=== PATIENT | male | born 1970 | race African-American/Black ===

== ENCOUNTER 2023-09-04 09:32 | Emergency (ER) | payer OTHER, MEDICAID, SELFPAY ==
[2023-09-04] VITALS (9 sets, daily range): BP systolic 125–150; BP diastolic 80–103; PULSE 82–143; RESP 11–21; TEMP 37.1; O2SAT 97–99; BMI 45.4
--- NOTE | 2023-09-04 09:37 | ED.GENADULT ---
HPI - General Adult General Chief complaint: Arrhythmia/Palpitations Stated complaint: SVT Time Seen by Provider: 09/04/23 09:37 History of Present Illness HPI narrative: 53-year-old gentleman with history of hypertension hyperlipidemia presents with an episode of palpitations. He notes that on the he had 2 hours of rapid heart rate. 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 He was not having chest pain or dyspnea at that time. Medics found him to be in an SVT at 180 with blood pressure in the 90 range. With vagal maneuvers heart rate came down to the 140 range. He denies any recent fevers, cough, chills. He is not been having chest pain orthopnea, dyspnea, lower extremity edema. He notes that he typically drinks 2 energy drinks daily but not weight loss medications other stimulants and he does not smoke tobacco. Related Data Allergies Allergy/AdvReac Type Severity Reaction Status Date / Time No Known Drug Allergies Allergy Verified 09/04/23 11:11 Review of Systems Review of Systems Narrative: Pertinent positive and negative findings as per HPI Patient History Medical History (Updated 09/04/23 @ 12:25 by Peg Simeon MD) Hyperlipidemia Hypertension Social History Smoking Status: Former smoker Exam Initial Vital Signs Initial Vital Signs: Vital Signs Temperature 98.8 F 09/04/23 09:30 Pulse Rate 94 H 09/04/23 09:30 Respiratory Rate 18 09/04/23 09:30 Blood Pressure 132/84 09/04/23 09:30 Pulse Oximetry 98 09/04/23 09:30 Oxygen Delivery Method Room Air 09/04/23 09:30 General: Healthy appearing, in no acute distress. Able to give a complete and coherent history. Well-nourished well-developed HEENT: Moist mucous membranes, normal sclera with reactive pupils, Neck: No JVD, supple Respiratory: Lungs are clear to auscultation, no wheezing no rales no rhonchi. Full and symmetrical air movement Cardiac: Regular rate and rhythm no murmurs no bruits Neurologic: Grossly neurologically intact with no obvious asymmetries or abnormalities Extremities: No trauma, well perfused Psych: Cooperative, appropriate insight and affect Course Orders Ordered: ED Orders 09/04/23 09:34 Complete Blood Count AUTO DIFF Stat Comprehensive Metabolic Panel Stat Magnesium Stat Thyroid Stimulating Hormone Stat Troponin I Stat 09/04/23 09:43 EKG-12 Lead Stat Vital Signs Vital signs: Vital Signs - 8 hr 09/04/23 09:30 09/04/23 09:40 09/04/23 10:00 Temperature 98.8 F Pulse Rate 94 H 143 H Respiratory Rate 18 15 Blood Pressure 132/84 139/99 H Pulse Oximetry 98 99 Oxygen Delivery Method Room Air Room Air 09/04/23 10:00 09/04/23 10:30 09/04/23 10:30 Temperature Pulse Rate 90 97 H Respiratory Rate 16 16 Blood Pressure 133/80 Pulse Oximetry 98 Oxygen Delivery Method 09/04/23 11:00 09/04/23 11:00 Temperature Pulse Rate 88 Respiratory Rate 11 L Blood Pressure 125/81 Pulse Oximetry 98 Oxygen Delivery Method Medical Decision Making Lab Data 09/04/23 09:34 09/04/23 09:34 Labs: Lab Results 09/04/23 Range/Units 09:34 WBC 5.1 (4.5-11.0) X10^3/uL RBC 5.73 (4.5-5.9) X10^6/uL Hgb 15.6 (13.5-17.5) g/dL Hct 47.0 (41-53) % MCV 82.0 (80-100) fL MCH 27.3 (26-34) PG MCHC 33.3 (30-36) % RDW 14.9 H (11.6-14.8) % Plt Count 215 (150-400) X10^3/uL Neut % (Auto) 59.6 (50-75) % Lymph % (Auto) 30.3 (25-40) % Schley % (Auto) 7.8 (3-14) % Eos % (Auto) 1.2 L (2-4) % Baso % (Auto) 1.1 (0-2) % Neut # (Auto) 3000 (3289-7855) /uL Lymph # (Auto) 1500 (7462-8263) /uL Schley # (Auto) 400 (0-900) /uL Eos # (Auto) 100 (0-450) /uL Baso # (Auto) 100 (0-100) /uL Sodium 138 (137-145) mmol/L Potassium 3.5 (3.4-5.1) mmol/L Chloride 104 (98-107) mmol/L Carbon Dioxide 25 (22-32) mmol/L BUN 22 H (9-20) mg/dL Creatinine 1.17 (0.66-1.25) mg/dL Estimated GFR > 60 (>60) mL/min BUN/Creatinine Ratio 18.8 (6-22) Glucose 150 H (70-100) mg/dL Calcium 9.7 (8.4-10.2) mg/dL Magnesium 1.7 (1.6-2.3) mg/dL Total Bilirubin 0.8 (0.2-1.3) mg/dL AST 41 (17-59) IU/L ALT 64 H (<50) IU/L Alkaline Phosphatase 90 (38-126) U/L Troponin I 0.025 (0.01-0.034) ng/mL Total Protein 7.9 (6.3-8.2) g/dL Albumin 3.8 (3.5-5.0) g/dL Globulin 4.1 (1.7-4.1) g/dL Albumin/Globulin Ratio 0.9 L (1.0-2.8) TSH 1.42 (0.47-4.68) uIU/mL MDM Narrative Medical decision making narrative: CC: Palpitation, supraventricular tachycardia Complicating co-morbidities: Hypertension, hyperlipidemia Data collected from: patient, Differential considered: SVT, paroxysmal atrial fibrillation, ventricular tachycardia Exam documented above, pertinent findings include: Completely benign exam. Patient has spontaneously converted by the time of my exam. Lab Test results independently reviewed as above. Pertinent findings: CBC is unremarkable Chemistries Are reassuring TSH is within appropriate limits Independently reviewed EKG: Telemetry rhythms show SVT in the 140 range on arrival. He converted to sinus rhythm and EKG at that point shows a ventricular rate of 95 with no acute ischemic changes Treatments: Vagal maneuvers by blowing against a syringe were successful Discussion: 53-year-old gentleman with a history of hypertension, hyperlipidemia has now had 2 episodes of SVT both lasting approximately 2 hours this week. He describes no new medications or changes in behaviors or habits. He has every intention of discontinuing the 2 energy drinks he currently drinks daily. At this point reassurance is given however I do believe that additional outpatient workup is going to be appropriate and have shared that with him. I have recommended that he schedule follow up with his primary care doctor in [place]. He is given copies of his EKG and blood work from today's ER visit and at this point he is safe for discharge Discharge Plan Departure Patient Disposition: Home Clinical Impression: Supraventricular tachycardia Instructions: DI for Paroxysmal Supraventricular Tachycardia Activity Restrictions/Additional Instructions: Thank you for coming in today You had an episode of supra ventricular tachycardia. I have given you some printed information on this rhythm. This is not a life-threatening rhythm. Your blood work was reassuring including your thyroid level. I have given you copies of your blood work and your EKG done after you spontaneously converted back to sinus rhythm. I would recommend that you follow-up with your primary care doctor. Your primary care doctor may want to do an outpatient echocardiogram to look for any structural abnormalities with your heart. I would also recommend continuing your blood pressure and cholesterol medications. Finally, you need to stop the energy drinks that you are consuming. They may be contributing to this. If you find that you are getting worse or develop any new symptoms, please feel free to return to the emergency department for further evaluation. Stand Alone Forms: Patient Portal/API
[2023-09-04 09:49] LABS: Add Manual Diff / Slide Review NO; Basophils Absolute Auto 100 /uL (0-100); Basophils Percent Auto 1.1 % (0-2); Eosinophils Absolute Auto 100 /uL (0-450); Eosinophils Percent Auto 1.2 % (2-4); Hemoglobin 15.6 g/dL (13.5-17.5); Lymphocytes Absolute Auto 1500 /uL (1100-4500); Lymphocytes Percent Auto 30.3 % (25-40); Mean Corpuscular HGB Conc 33.3 % (30-36); Mean Corpuscular Hemoglobin 27.3 PG (26-34); Monocytes Absolute Auto 400 /uL (0-900); Monocytes Percent Auto 7.8 % (3-14); Neutrophils Absolute Auto 3000 /uL (1500-7000); Neutrophils Percent Auto 59.6 % (50-75); Platelet Count 215 X10^3/uL (150-400); Red Blood Cell Count 5.73 X10^6/uL (4.5-5.9); Red Cell Distribution Width 14.9 % (11.6-14.8); White Blood Cell Count 5.1 X10^3/uL (4.5-11.0)
[2023-09-04 09:57] LABS: Alanine Aminotransferase 64 IU/L (<50); Albumin 3.8 g/dL (3.5-5.0); Albumin Globulin Ratio 0.9 (1.0-2.8); Alkaline Phosphatase 90 U/L (38-126); Aspartate Aminotransferase 41 IU/L (17-59); BUN Creatinine Ratio 18.8 (6-22); Bilirubin Total 0.8 mg/dL (0.2-1.3); Blood Urea Nitrogen 22 mg/dL (9-20); Calcium 9.7 mg/dL (8.4-10.2); Carbon Dioxide 25 mmol/L (22-32); Chloride 104 mmol/L (98-107); Estimated Glomerular Filt Rate > 60 mL/min (>60); Globulin 4.1 g/dL (1.7-4.1); Glucose 150 mg/dL (70-100); HEMOLYSIS < 15 (0-50); Magnesium 1.7 mg/dL (1.6-2.3); Potassium 3.5 mmol/L (3.4-5.1); Sodium 138 mmol/L (137-145); Total Protein 7.9 g/dL (6.3-8.2)
[2023-09-04 10:09] LABS: Troponin I 0.025 ng/mL (0.01-0.034)
[2023-09-04 10:28] LABS: Thyroid Stimulating Hormone 1.42 uIU/mL (0.47-4.68)
== END 2023-09-04 13:09 | disposition home or self-care (01) ==
PROVIDERS: Emergency Provider Emergency Medicine; Referring Provider Emergency Medicine
DX: I47.10 Supraventricular tachycardia, unspecified (principal)
CPT/HCPCS: 36415; 80053; 83735; 84443; 84484; 85025; 93005; 99283; 99284